=== PATIENT | male | born 1980 | race Hispanic/Latino ===

== ENCOUNTER 2016-12-10 20:04 | Emergency (ER) | payer SELFPAY ==
[~2016-12-10] VITALS: Ht 167.6 cm; Wt 81.6 kg
[2016-12-10] MEDS ORDERED: KETOROLAC 30 MG/ML VIAL IVP ONE (20:15)
[2016-12-10] MEDS ORDERED: DEXAMETHASONE PF 10 MG/ML (DECADRON) VIAL IV ONE (20:15)
[2016-12-10] MEDS ORDERED: CEPHALEXIN 250 MG (KEFLEX) CAP PO ONE (20:15)
[2016-12-10] MEDS ORDERED: CEPH500C PO (20:18)
--- NOTE | 2016-12-10 20:19 | ED Integumentary General ---
General Chief Complaint: Bite-Animal/Human/Insect Stated Complaint: LT LEG SWELLING/PAIN,POSSIBLE BITE Source: patient Exam Limitations: no limitations History of Present Illness Time seen by provider: 20:16 Initial Comments To ER with reports of left leg swelling secondary to an insect bite or sting that occurred last night. Patient was sitting outside when something came out of the ground, attached itself to his leg, he felt it sting him and then flew off. He has had progressive pain and swelling since last night. Ambulation is difficult due to the pain. He has developed diarrhea since then as well as chills but no other rash or shortness of breath. Timing/Duration: yesterday Severity: moderate Associated Symptoms: denies symptoms Allergies and Home Medications Allergies Coded Allergies: No Known Drug Allergies (Unverified , 12/10/16) Constitutional: see HPI EENTM: see HPI Respiratory: no symptoms reported Cardiovascular: no symptoms reported Genitourinary: no symptoms reported Musculoskeletal: no symptoms reported Skin: no symptoms reported Psychiatric/Neurological: No Symptoms Reported Past Rtnxazw-Qxiuaq-Rwcjxi Hx Patient Social History Recent Foreign Travel: No Contact w/Someone Who Travel: No Physical Exam Vital Signs Capillary Refill : General Appearance: WD/WN, no apparent distress HEENT: PERRL/EOMI, normal ENT inspection Neck: non-tender, full range of motion Respiratory: no respiratory distress, no accessory muscle use Gastrointestinal: non tender, soft Neurologic/Psychiatric: alert, normal mood/affect, oriented x 3 Skin: normal color, warm/dry Skin Problem Location: lower extremities (there is some localized swelling to the anteromedial aspect of the left lower leg. Within this there is a 2 cm circular area of purpura. There is no lymphangitis petechial rash otherwise.) Departure Impression Impression: Primary Impression: Insect sting Additional Impression: localized allergic reaction Disposition: HOME, SELF-CARE Condition: Stable Departure-Patient Inst. Decision time for Depature: 20:18 Referrals: NO,LOCAL PHYSICIAN (PCP/Family) Primary Care Physician Patient Instructions: Insect Bites and Stings (DC) Add. Discharge Instructions: 1. Cool compresses to this area 2. Elevate the foot as much as possible 3. Return to ER for any worsening 4. Follow-up with your doctor next week for any persistent symptoms All discharge instructions reviewed with patient and/or family. Voiced understanding. Scripts Cephalexin (Cephalexin) 500 Mg Capsule 500 MG PO TID, #15 CAP Prov: JUAN LUIS GALLARDO APRN 12/10/16 JUAN LUIS GALLARDO APRN Dec 10, 2016 20:18
[2016-12-10 20:22] LABS: BASOPHILS % (AUTO) 0 % (0-10); EOSINOPHILS # (AUTO) 0.1 10^3/uL (0.0-0.3); EOSINOPHILS % (AUTO) 1 % (0-10); LYMPHOCYTES # (AUTO) 3.8 X 10^3 (1.0-4.0); LYMPHOCYTES % (AUTO) 33 % (12-44); MEAN CORPUSCULAR HEMOGLOBIN 32 PG (25-34); MEAN CORPUSCULAR HGB CONC 34 G/DL (32-36); MEAN CORPUSCULAR VOLUME 94 FL (80-99); MEAN PLATELET VOLUME 9.5 FL (7.4-10.4); MONOCYTES % (AUTO) 9 % (0-12); NEUTROPHILS # (AUTO) 6.6 X 10^3 (1.8-7.8); NEUTROPHILS % (AUTO) 57 % (42-75); PLATELET COUNT 288 10^3/uL (130-400); RED BLOOD COUNT 4.31 10^6/uL (4.35-5.85); RED CELL DISTRIBUTION WIDTH 12.5 % (10.0-14.5); WHITE BLOOD COUNT 11.5 10^3/uL (4.3-11.0)
[2016-12-10 20:37] LABS: ANION GAP 14 MMOL/L (5-14); BLOOD UREA NITROGEN 18 MG/DL (7-18); BUN/CREATININE RATIO 16; CARBON DIOXIDE 20 MMOL/L (21-32); CHLORIDE 107 MMOL/L (98-107); CREATININE SERUM 1.15 MG/DL (0.60-1.30); GFR ESTIMATED > 60; GLUCOSE 124 MG/DL (70-105); POTASSIUM 4.1 MMOL/L (3.6-5.0); SODIUM 141 MMOL/L (135-145)
[2016-12-10 20:59] VITALS: BP 121/62
== END 2016-12-10 20:41 | disposition home or self-care (01) ==
LOC: ER 20:08
DX: S80.862A Insect bite (nonvenomous), left lower leg, initial encounter (principal); T78.40XA Allergy, unspecified, initial encounter; W57.XXXA Bitten or stung by nonvenomous insect and other nonvenomous arthropods, initial encounter
CPT/HCPCS: 36415; 80048; 85025; 96374; 96375

== ENCOUNTER 2020-10-12 11:27 | Emergency (ER) | payer SELFPAY ==
[~2020-10-12] VITALS: Ht 167.7 cm; Wt 81.6 kg
[~2020-10-12 11:27] MED LIST: CEPH500C PO
[2020-10-12] MEDS ORDERED: NS IV 1000 ML 1,000 ML IV SCH (11:45)
[2020-10-12 11:56] LABS: BASOPHILS % (AUTO) 0 % (0-10); EOSINOPHILS % (AUTO) 0 % (0-10); HEMATOCRIT 39 % (40-54); HEMOGLOBIN 12.6 g/dL (13.3-17.7); LYMPHOCYTES # (AUTO) 1.2 10^3/uL (1.0-4.0); LYMPHOCYTES % (AUTO) 13 % (12-44); MEAN CORPUSCULAR HEMOGLOBIN 30 pg (25-34); MEAN CORPUSCULAR HGB CONC 32 g/dL (32-36); MEAN CORPUSCULAR VOLUME 94 fL (80-99); MEAN PLATELET VOLUME 9.2 fL (9.0-12.2); MONOCYTES # (AUTO) 0.6 10^3/uL (0.0-1.0); MONOCYTES % (AUTO) 7 % (0-12); NEUTROPHILS % (AUTO) 79 % (42-75); PLATELET COUNT 348 10^3/uL (130-400); WHITE BLOOD COUNT 8.9 10^3/uL (4.3-11.0)
--- NOTE | 2020-10-12 12:15 | ED Respiratory ---
General Chief Complaint: Respiratory Problems Stated Complaint: SOB, LOW 2 Nursing Triage Note: PT AMBULATE TO ROOM 06 WITH C/O SOB AND LOW O2 SAT FOR OVER A WEEK. PT WAS SENT FROM [facility] FOR THIS C/O. Source: patient Exam Limitations: no limitations History of Present Illness Date Seen by Provider: October 12, 2020 Time Seen by Provider: 11:40 Initial Comments To ER by private vehicle from [facility] with reports of shortness of breath and hypoxia. Oxygen saturation was reportedly 88%. Symptoms started on , 10/06/2020. Subjective unmeasured fevers, nasal congestion, cough, fatigue. Has not been vaccinated against Covid. Was exposed to some individuals with influenza at the beginning of last week. He was seen at [facility] and had a negative Covid PCR test and negative influenza test. He has no pre-existing lung disease, no history of asthma. Timing/Duration: constant Severity: moderate Prior Episodes/Possible Cause: no prior episodes Associated Symptoms: cough, shortness of breath Allergies and Home Medications Allergies Coded Allergies: No Known Drug Allergies (Unverified , 12/10/16) Home Medications Azithromycin 250 Mg Tablet, 250 MG PO UD TAKE 2 TABLETS ON DAY ONE THEN TAKE 1 TABLET DAILY FOR FOUR MORE DAYS Prescribed by: JUAN LUIS GALLARDO on 10/12/20 1324 Cephalexin 500 Mg Capsule, 500 MG PO TID Prescribed by: JUAN LUIS GALLARDO on 12/10/162017 Dexamethasone 6 Mg Tablet, 6 MG PO DAILY Prescribed by: JUAN LUIS GALLARDO on 10/12/20 1324 Patient Home Medication List Home Medication List Reviewed: Yes Review of Systems Review of Systems Constitutional: see HPI, fever, malaise EENTM: see HPI Respiratory: cough, short of breath Cardiovascular: no symptoms reported Genitourinary: no symptoms reported Musculoskeletal: no symptoms reported Skin: no symptoms reported Psychiatric/Neurological: No Symptoms Reported Hematologic/Lymphatic: No Symptoms Reported Immunological/Allergic: no symptoms reported Past Hbyxmxe-Orasni-Vbtgqu Hx Patient Social History Alcohol Use: Regular Use Number of Drinks Today: AA Alcohol Beverage of Choice: Beer Smoking Status: Never a Smoker 2nd Hand Smoke Exposure: No Recent Infectious Disease Expo: No Recent Hopitalizations: No Immunizations Up To Date Tetanus Booster (TDap): Unknown Seasonal Allergies Seasonal Allergies: No Past Medical History Surgeries: Yes (R. ACL) Respiratory: No Cardiac: No Neurological: No Genitourinary: No Gastrointestinal: No Musculoskeletal: No Endocrine: No HEENT: No Cancer: No Psychosocial: No Integumentary: No Blood Disorders: No Physical Exam Vital Signs - First Documented 10/12/20 11:35 Temp 36.4 Pulse 95 Resp 16 B/P (MAP) 122/80 (94) O2 Delivery Room Air Capillary Refill : Less Than 3 Seconds Height: 5'6.00" Weight: 180lbs. oz. 81.888479tv; 29.00 BMI Method:Stated General Appearance: WD/WN, no apparent distress, other (No distress, heart rate in the 80s, SPO2 92% on room air. Shallow breathing with good air movement and no wheezing noted.) HEENT: PERRL/EOMI, normal ENT inspection Neck: non-tender, full range of motion Respiratory: normal breath sounds, no respiratory distress, no accessory muscle use Cardiovascular: regular rate, rhythm, no murmur Gastrointestinal: normal bowel sounds, non tender, soft Neurologic/Psychiatric: alert, normal mood/affect, oriented x 3 Skin: normal color, warm/dry Progress/Results/Core Measures Suspected Sepsis Recent Fever Within 48 Hours: No Infection Criteria Present: None New/Unexplained Altered Menta: No Sepsis Screen: No Definite Risk SIRS Temperature: Pulse: 95 Respiratory Rate: 16 Laboratory Tests 10/12/20 11:45: White Blood Count 8.9 Blood Pressure 122 /80 Mean: 94 Laboratory Tests 10/12/20 11:45: Creatinine 0.74, Platelet Count 348, Total Bilirubin 0.6 Results/Orders Lab Results Laboratory Tests Test 10/12/20 11:45 10/12/20 11:55 Range/Units White Blood Count 8.9 4.3-11.0 10^3/uL Red Blood Count 4.17 L 4.30-5.52 10^6/uL Hemoglobin 12.6 L 13.3-17.7 g/dL Hematocrit 39 L 40-54 % Mean Corpuscular Volume 94 80-99 fL Mean Corpuscular Hemoglobin 30 25-34 pg Mean Corpuscular Hemoglobin Concent 32 32-36 g/dL Red Cell Distribution Width 12.2 10.0-14.5 % Platelet Count 348 130-400 10^3/uL Mean Platelet Volume 9.2 9.0-12.2 fL Immature Granulocyte % (Auto) 1 % Neutrophils (%) (Auto) 79 H 42-75 % Lymphocytes (%) (Auto) 13 12-44 % Monocytes (%) (Auto) 7 0-12 % Eosinophils (%) (Auto) 0 0-10 % Basophils (%) (Auto) 0 0-10 % Neutrophils # (Auto) 7.0 1.8-7.8 10^3/uL Lymphocytes # (Auto) 1.2 1.0-4.0 10^3/uL Monocytes # (Auto) 0.6 0.0-1.0 10^3/uL Eosinophils # (Auto) 0.0 0.0-0.3 10^3/uL Basophils # (Auto) 0.0 0.0-0.1 10^3/uL Immature Granulocyte # (Auto) 0.1 0.0-0.1 10^3/uL D-Dimer 1.68 H 0.00-0.49 UG/ML Sodium Level 139 135-145 MMOL/L Potassium Level 3.4 L 3.6-5.0 MMOL/L Chloride Level 103 98-107 MMOL/L Carbon Dioxide Level 25 21-32 MMOL/L Anion Gap 11 5-14 MMOL/L Blood Urea Nitrogen 10 7-18 MG/DL Creatinine 0.74 0.60-1.30 MG/DL Estimat Glomerular Filtration Rate > 60 BUN/Creatinine Ratio 14 Glucose Level 133 H 70-105 MG/DL Calcium Level 8.7 8.5-10.1 MG/DL Corrected Calcium 9.0 8.5-10.1 MG/DL Total Bilirubin 0.6 0.1-1.0 MG/DL Aspartate Amino Transf (AST/SGOT) 27 5-34 U/L Alanine Aminotransferase (ALT/SGPT) 26 0-55 U/L Alkaline Phosphatase 87 40-136 U/L C-Reactive Protein High Sensitivity 22.13 H 0.00-0.50 MG/DL B-Type Natriuretic Peptide 36.5 <100.0 PG/ML Total Protein 7.2 6.4-8.2 GM/DL Albumin 3.6 3.2-4.5 GM/DL Procalcitonin 0.09 <0.10 NG/ML Coronavirus 2019 (SAM) Detected H Not Detecte Micro Results Microbiology 10/12/20 Influenza Types A,B Antigen (ANGELICA) - Final, Complete My Orders Orders - GALLARDO,PETER J LEAD RIDER Hs C Reactive Protein (10/12/20 11:43) Fibrin Degradation Products (10/12/20 11:43) Procalcitonin (Pct) (10/12/20 11:43) Cbc With Automated Diff (10/12/20 11:43) Comprehensive Metabolic Panel (10/12/20 11:43) BNP (10/12/20 11:43) Ed Iv/Invasive Line Start (10/12/20 11:43) Covid 19 Inhouse Test (10/12/20 11:43) Influenza A And B Antigens (10/12/20 11:43) Ns Iv 1000 Ml (Sodium Chloride 0.9%) (10/12/20 11:45) Ct Angio Chest W (10/12/20 12:31) Iohexol Injection (Omnipaque 350 Mg/Ml 1 (10/12/20 12:45) Received Contrast (Hold Metformin- Contr (10/12/20 12:45) Sodium Chloride Flush (Catheter Flush Sy (10/12/20 12:45) Ns (Ivpb) (Sodium Chloride 0.9% Ivpb Bag (10/12/20 12:45) Dexamethasone Tablet (Decadron Tablet) (10/12/20 13:30) Medications Given in ED Current Medications Medications Dose Ordered Sig/Moe Route Start Time Stop Time Status Last Admin Dose Admin Iohexol 100 ml ONCE ONCE IV 10/12/20 12:45 10/12/20 12:46 DC 10/12/20 13:03 72 ML Sodium Chloride 10 ml NEEDED PRN IV 10/12/20 12:45 10/12/20 13:03 10 ML Sodium Chloride 100 ml ONCE ONCE IV 10/12/20 12:45 10/12/20 12:46 DC 10/12/20 13:04 80 ML Vital Signs/I&O 10/12/20 11:35 Temp 36.4 Pulse 95 Resp 16 B/P (MAP) 122/80 (94) O2 Delivery Room Air Capillary Refill : Less Than 3 Seconds Blood Pressure Mean: 94 Departure Communication (Admissions) [facility] REC#: [id number] PT STATUS: REG ER : 1980 PHYSICIAN: JUAN LUIS GALLARDO LEAD RIDER ADMIT DATE: 10/12/20/ER Draft Date of Exam:10/12/20 CT ANGIO CHEST W PROCEDURE: CT angiography of the chest with contrast. TECHNIQUE: Multiple contiguous axial images were obtained through the chest after uneventful bolus administration of intravenous contrast. 3D reconstructed CTA MIP acquisitions were also performed. Auto Exposure Controls were utilized during the CT exam to meet ALARA standards for radiation dose reduction. INDICATION: Cough. Shortness of breath. COVID positive. Concern for pulmonary embolism. COMPARISON: None. FINDINGS: This helical CT pulmonary angiogram is diagnostic to the subsegmental level branches of the pulmonary artery and demonstrates no pulmonary emboli. The heart and great vessels are unremarkable. There is no pericardial effusion. There is no axillary, mediastinal, or hilar adenopathy. Diffuse groundglass opacities are seen throughout the lungs with the greatest distribution in the mid and lower lungs. No evidence of pulmonary mass. No central endobronchial obstructing lesions. No pleural effusion or pneumothorax. Osseous structures appear normal. Limited views of the upper abdomen are unremarkable. IMPRESSION: 1. No acute pulmonary embolus. 2. Diffuse ground glass opacities throughout the lungs, greatest in the bilateral mid and lower lungs. These findings are consistent with a history of COVID infection. Report was faxed to [facility]/RN Infection Control by janelle at 1:15PM. Dictated on workstation # [id number] Dict: 10/12/20 1311 Trans: 10/12/20 1315 JANELLE [id number] Interpreted by: JOEY COMER DO Electronically signed by: Patient is not a candidate for monoclonal antibody infusion. Impression Primary Impression: COVID-19 Disposition: 01 HOME, SELF-CARE Condition: Stable Departure-Patient Inst. Decision time for Depature: 13:21 Referrals: [facility] (PCP/Family) Primary Care Physician Patient Instructions: COVID-19 Overview Scripts Azithromycin (Azithromycin) 250 Mg Tablet 250 MG PO UD, #6 TAB TAKE 2 TABLETS ON DAY ONE THEN TAKE 1 TABLET DAILY FOR FOUR MORE DAYS Prov: JUAN LUIS GALLARDO LEAD RIDER 10/12/20 Dexamethasone (Decadron) 6 Mg Tablet 6 MG PO DAILY, #5 TAB Prov: JUAN LUIS GALLARDO LEAD RIDER 10/12/20 Work/School Note: Work Release Form Date Seen in the Emergency Department: October 12, 2020 Return to Work: October 17, 2020 JUAN LUIS GALLARDO APRN October 12, 2020 12:15
[2020-10-12 12:19] LABS: ALBUMIN 3.6 GM/DL (3.2-4.5); CHLORIDE 103 MMOL/L (98-107); POTASSIUM 3.4 MMOL/L (3.6-5.0); SODIUM 139 MMOL/L (135-145)
[2020-10-12 12:20] LABS: CALCIUM 8.7 MG/DL (8.5-10.1)
[2020-10-12 12:21] LABS: GLUCOSE 133 MG/DL (70-105); TOTAL PROTEIN 7.2 GM/DL (6.4-8.2)
[2020-10-12 12:22] LABS: CARBON DIOXIDE 25 MMOL/L (21-32)
[2020-10-12 12:23] LABS: BILIRUBIN,TOTAL 0.6 MG/DL (0.1-1.0)
[2020-10-12 12:25] LABS: ALKALINE PHOSPHATASE 87 U/L (40-136); CREATININE SERUM 0.74 MG/DL (0.60-1.30); GFR ESTIMATED > 60
[2020-10-12 12:26] LABS: BUN/CREATININE RATIO 14
[2020-10-12 12:28] LABS: ALANINE AMINOTRANSFERASE 26 U/L (0-55)
[2020-10-12] MEDS ORDERED: CATHETER FLUSH 10 ML SYR IV PRN (12:45)
[2020-10-12] MEDS ORDERED: HOLD METFORMIN - RECEIVED CONTRAST 20 ML VIAL IV SCH (12:45)
[2020-10-12] MEDS ORDERED: NS 100 ML (IVPB) BAG IV ONE (12:45)
[2020-10-12] MEDS ORDERED: IOHEXOL 350 MG/ML 100 ML (OMNIPAQUE 350) VIAL IV ONE (12:45)
--- NOTE | 2020-10-12 13:15 | Diagnostic Imaging Report ---
PROCEDURE: CT angiography of the chest with contrast. TECHNIQUE: Multiple contiguous axial images were obtained through the chest after uneventful bolus administration of intravenous contrast. 3D reconstructed CTA MIP acquisitions were also performed. Auto Exposure Controls were utilized during the CT exam to meet ALARA standards for radiation dose reduction. INDICATION: Cough. Shortness of breath. COVID positive. Concern for pulmonary embolism. COMPARISON: None. FINDINGS: This helical CT pulmonary angiogram is diagnostic to the subsegmental level branches of the pulmonary artery and demonstrates no pulmonary emboli. The heart and great vessels are unremarkable. There is no pericardial effusion. There is no axillary, mediastinal, or hilar adenopathy. Diffuse groundglass opacities are seen throughout the lungs with the greatest distribution in the mid and lower lungs. No evidence of pulmonary mass. No central endobronchial obstructing lesions. No pleural effusion or pneumothorax. Osseous structures appear normal. Limited views of the upper abdomen are unremarkable. IMPRESSION: 1. No acute pulmonary embolus. 2. Diffuse ground glass opacities throughout the lungs, greatest in the bilateral mid and lower lungs. These findings are consistent with a history of COVID infection. Report was faxed to [facility]/RN Infection Control by lela at 1:15PM. Dictated by: Dictated on workstation # [id number]
[2020-10-12] MEDS ORDERED: DEXA6TAB6 PO (13:24)
[2020-10-12] MEDS ORDERED: AZIT250T12 PO (13:24)
[2020-10-12] MEDS ORDERED: dexAMETHasone 6 MG TAB (DECADRON) PO SCH (13:30)
[2020-10-12 13:46] VITALS: BP 141/70
== END 2020-10-12 13:52 | disposition home or self-care (01) ==
LOC: EDUNIT# 11:27 → ER 11:30
DX: U07.1 COVID-19 (principal)
CPT/HCPCS: 71275; 80053; 83880; 84145; 85025; 85379; 86141; 87804; 99284; U0002; 36415; 87635